=== PATIENT | female | born 1975 | race Caucasian/White ===

== ENCOUNTER 2018-02-21 15:08 | Emergency (ER) | payer OTHER ==
[~2018-02-21] VITALS: Ht 167.6 cm; Wt 106.1 kg
[~2018-02-21 15:08] MED LIST: GLUCOPHAGE500 MG PO; HUMALOG MI100 UNIT/6 SC
[2018-02-21 15:43] LABS: HEMATOCRIT 29.3 % (36.0-46.0); MCH 23.2 PG (29.0-34.0); MCHC 30.7 G/DL (30.0-36.0); MCV 75.5 FL (83-99); PLATELET COUNT 338 K/uL (156-360); RBC DIS.WIDTH-CV 15.8 % (11.8-14.6); RBC DIS.WIDTH-SD 43.5 % (39-53); RED BLOOD COUNT 3.88 M/uL (3.80-5.20)
[2018-02-21 15:56] LABS: ALBUMIN 3.1 g/dL (3.2-4.8); CHLORIDE 101 mEq/L (99-109); POTASSIUM 3.5 mEq/L (3.7-5.4); SODIUM 133 mEq/L (136-147)
[2018-02-21 15:59] LABS: CARBON DIOXIDE (BICARBONATE) 24.6 MEQ/L (20-31); GLUCOSE 302 mg/dL (70-99); TOTAL PROTEIN 6.4 g/dL (6.4-8.3)
[2018-02-21 16:01] LABS: TOTAL BILIRUBIN 0.3 mg/dL (0.0-1.0)
[2018-02-21 16:02] LABS: ALKALINE PHOSPHATASE 73 IU/L (3-129); GFR ESTIMATE (CALCULATED) > 59 mL/min/
[2018-02-21 16:03] LABS: UREA NITROGEN (BUN) 15 mg/dL (9-23)
[2018-02-21 16:04] LABS: AST (GOT) 12 IU/L (2-34)
[2018-02-21 16:05] LABS: ALT (GPT) 6 IU/L (3-49)
[2018-02-21 16:06] LABS: TROP-I INTERPRETATION NEGATIVE; TROPONIN-I 0.02 ng/mL (0.0-0.30)
[2018-02-21] MEDS ORDERED: PATANOL OP100 DROP/5 RIGHT EYE (17:07)
[2018-02-21] MEDS ORDERED: KEFLEX500 MG PO (17:07)
[2018-02-21] MEDS ORDERED: METFORMIN HCL500 MG PO (17:07)
[2018-02-21] MEDS ORDERED: FLEXERIL10 MG PO (17:14)
[2018-02-21] MEDS ORDERED: TESSALON200 MG PO (17:14)
[2018-02-21 17:32] VITALS: BP 176/91
== END 2018-02-21 18:09 | disposition home or self-care (01) ==
LOC: EME 15:08
PROVIDERS: Nurse Practitioner Family
DX: E11.65 Type 2 diabetes mellitus with hyperglycemia (principal); N39.0 Urinary tract infection, site not specified; D64.9 Anemia, unspecified; H10.11 Acute atopic conjunctivitis, right eye; Z91.14 Patient's other noncompliance with medication regimen; R94.31 Abnormal electrocardiogram [ECG] [EKG]; M41.9 Scoliosis, unspecified; H54.7 Unspecified visual loss; Z79.84 Long term (current) use of oral hypoglycemic drugs
CPT/HCPCS: 71046; 80053; 82010; 82803; 82948; 84484; 85027; 93005; 94640; 99281; 99285; J1885; J7030

== ENCOUNTER 2018-02-21 18:24 | Inpatient (IN) | payer OTHER ==
[~2018-02-21] VITALS: Ht 167.6 cm; Wt 96.3 kg
[~2018-02-21 18:24] MED LIST changes: +FLEXERIL10 MG PO; +KEFLEX500 MG PO; +METFORMIN HCL500 MG PO; +PATANOL OP100 DROP/5 RIGHT EYE; +TESSALON200 MG PO
[2018-02-22 00:25] VITALS: BP 140/92
[2018-02-22 07:39] VITALS: BP 136/66
[2018-02-22 14:52] VITALS: BP 143/82
[2018-02-23 07:30] VITALS: BP 141/80
[2018-02-23 15:06] VITALS: BP 161/75
[2018-02-23 17:05] LABS: HEMATOCRIT 27.1 % (36.0-46.0); HEMOGLOBIN 8.2 G/DL (11.9-15.5); MCHC 30.3 G/DL (30.0-36.0); MCV 76.1 FL (83-99); PLATELET COUNT 288 K/uL (156-360); RBC DIS.WIDTH-CV 16.2 % (11.8-14.6); RBC DIS.WIDTH-SD 44.6 % (39-53); RED BLOOD COUNT 3.56 M/uL (3.80-5.20); WHITE BLOOD COUNT 5.5 K/uL (4.1-10.2)
[2018-02-23 17:14] LABS: CHLORIDE 106 MEQ/L (99-109); POTASSIUM 3.5 MEQ/L (3.7-5.4); SODIUM 136 MEQ/L (136-147)
[2018-02-23 17:20] LABS: CREATININE 1.2 MG/DL (0.6-1.3); GFR ESTIMATE (CALCULATED) 52 mL/min/; GLUCOSE 198 mg/dL (70-99)
[2018-02-23 17:32] LABS: UREA NITROGEN (BUN) 26 mg/dL (9-23)
[2018-02-23 18:32] VITALS: BP 106/59
[2018-02-24 05:31] LABS: APPEARANCE SL.HAZY ((CLEAR)); BILIRUBIN NEGATIVE; BLOOD SMALL; COLOR YELLOW ((YELLOW)); GLUCOSE (STRIP) >=500; KETONES NEGATIVE; LEUKOCYTES NEGATIVE; NITRITE NEGATIVE; PROTEIN (STRIP) >=500; SPECIFIC GRAVITY 1.013 (1.000-1.030); UROBILINOGEN 0.2 MG/DL (0.2-1.0)
[2018-02-24 05:42] LABS: BACTERIA NONE SEEN /HPF; EPITHELIAL CELLS 1+ /HPF; HYALINE CASTS 0-5 /LPF; MUCUS TRACE /LPF; RED BLOOD CELLS 0-5 /HPF (0-5); WHITE BLOOD CELLS 0-5 /HPF (0-5)
[2018-02-24 07:37] LABS: HEMATOCRIT 26.6 % (36.0-46.0); HEMOGLOBIN 7.8 G/DL (11.9-15.5); MCH 22.3 PG (29.0-34.0); MCHC 29.3 G/DL (30.0-36.0); MCV 76.2 FL (83-99); PLATELET COUNT 300 K/uL (156-360); RBC DIS.WIDTH-CV 16.1 % (11.8-14.6); RBC DIS.WIDTH-SD 44.7 % (39-53); RED BLOOD COUNT 3.49 M/uL (3.80-5.20); WHITE BLOOD COUNT 5.9 K/uL (4.1-10.2)
[2018-02-24 07:48] VITALS: BP 169/78
[2018-02-24 08:32] LABS: FOLIC ACID (FOLATE) 9.7 NG/ML (5.0-22.0)
[2018-02-24 08:40] LABS: FERRITIN 9 NG/ML (10-291)
[2018-02-24 09:21] LABS: CHLORIDE 109 MEQ/L (99-109); GFR ESTIMATE (CALCULATED) > 59 mL/min/; GLUCOSE 126 mg/dL (70-99); SODIUM 140 MEQ/L (136-147); UREA NITROGEN (BUN) 26 mg/dL (9-23)
[2018-02-24 09:22] LABS: IRON < 10 MCG/DL (35-150); TRANSFERRIN SATUR. 5 % (20-55)
[2018-02-24 16:19] VITALS: BP 163/79
[2018-02-24 18:10] VITALS: BP 114/59
[2018-02-25 07:33] VITALS: BP 159/74
[2018-02-25 08:30] LABS: HEMATOCRIT 26.8 % (36.0-46.0); HEMOGLOBIN 8.1 G/DL (11.9-15.5); MCH 23.2 PG (29.0-34.0); MCHC 30.2 G/DL (30.0-36.0); MCV 76.8 FL (83-99); PLATELET COUNT 298 K/uL (156-360); RBC DIS.WIDTH-CV 16.1 % (11.8-14.6); RBC DIS.WIDTH-SD 45.1 % (39-53); RED BLOOD COUNT 3.49 M/uL (3.80-5.20); WHITE BLOOD COUNT 4.8 K/uL (4.1-10.2)
[2018-02-25 08:58] LABS: CHLORIDE 109 MEQ/L (99-109); CREATININE 0.9 MG/DL (0.6-1.3); GFR ESTIMATE (CALCULATED) > 59 mL/min/; GLUCOSE 116 mg/dL (70-99); POTASSIUM 3.9 MEQ/L (3.7-5.4); SODIUM 140 MEQ/L (136-147); UREA NITROGEN (BUN) 17 mg/dL (9-23)
[2018-02-25 16:08] VITALS: BP 166/90
[2018-02-25 20:47] LABS: C DIFF TOXIN NEGATIVE (NEGATIVE)
[2018-02-25 21:10] LABS: STOOL OCCULT BLD 1ST SPECIMEN NEGATIVE
[2018-02-26 07:40] VITALS: BP 178/87
[2018-02-26 09:05] LABS: HEMOGLOBIN A1c (GLYCOHEMOGLOB) 10.6 % (Below 5.7)
[2018-02-26 10:14] VITALS: BP 152/102
[2018-02-26 16:24] VITALS: BP 182/90
[2018-02-27 07:57] VITALS: BP 129/62
[2018-02-27 16:06] VITALS: BP 161/78
[2018-02-27 19:22] VITALS: BP 106/57
[2018-02-28 07:48] VITALS: BP 171/86
[2018-02-28 16:15] VITALS: BP 154/75
[2018-03-01 08:27] VITALS: BP 171/84
[2018-03-02 08:12] VITALS: BP 145/73
[2018-03-02 16:47] VITALS: BP 195/90
[2018-03-03 02:09] VITALS: BP 156/81
[2018-03-03 07:43] VITALS: BP 176/91
[2018-03-03 16:41] VITALS: BP 132/79
[2018-03-04 07:46] VITALS: BP 138/82
[2018-03-04 16:01] VITALS: BP 191/94
[2018-03-04 17:57] VITALS: BP 136/89
[2018-03-05 07:54] VITALS: BP 129/71
[2018-03-05 16:33] VITALS: BP 140/70
[2018-03-06 08:25] VITALS: BP 119/64
[2018-03-06 16:28] VITALS: BP 158/85
[2018-03-07 07:44] VITALS: BP 119/63
[2018-03-07 16:23] VITALS: BP 155/78
[2018-03-08 07:42] VITALS: BP 120/59
[2018-03-08 15:08] VITALS: BP 143/71
[2018-03-09 07:54] VITALS: BP 120/64
[2018-03-09 15:20] VITALS: BP 134/77
[2018-03-10 08:04] VITALS: BP 128/60
[2018-03-10 15:56] VITALS: BP 147/70
[2018-03-11 08:02] VITALS: BP 89/55
[2018-03-11 16:16] VITALS: BP 153/91
[2018-03-12 07:46] VITALS: BP 144/59
[2018-03-12 15:34] VITALS: BP 114/56
[2018-03-13 07:27] VITALS: BP 112/65
[2018-03-13 14:44] VITALS: BP 170/86
[2018-03-14 08:09] VITALS: BP 112/59
[2018-03-14] MEDS ORDERED: NYSTATIN15 GM TP (08:42)
[2018-03-14] MEDS ORDERED: LISINOPRIL2.5 MG PO (08:42)
[2018-03-14] MEDS ORDERED: ESCITALOPRAM OX20 MG PO (08:42)
== END 2018-03-14 12:10 | disposition home or self-care (01) | DRG 881 ==
LOC: EME 18:24 → EDOF 21:45 → 1WEST 21:45 → ENRESERV 23:00 → 1WEST 23:23
PROVIDERS: Hospitalist; Internal Medicine; Psychiatry & Neurology Psychiatry
DX: F43.21 Adjustment disorder with depressed mood (principal); R45.851 Suicidal ideations; R11.2 Nausea with vomiting, unspecified; R19.7 Diarrhea, unspecified; T38.3X5A Adverse effect of insulin and oral hypoglycemic [antidiabetic] drugs, initial encounter; T36.1X5A Adverse effect of cephalosporins and other beta-lactam antibiotics, initial encounter; E87.6 Hypokalemia; E11.65 Type 2 diabetes mellitus with hyperglycemia; I12.9 Hypertensive chronic kidney disease with stage 1 through stage 4 chronic kidney disease, or unspecified chronic kidney disease; E11.22 Type 2 diabetes mellitus with diabetic chronic kidney disease; N18.9 Chronic kidney disease, unspecified; E66.9 Obesity, unspecified; M41.9 Scoliosis, unspecified; H54.61 Unqualified visual loss, right eye, normal vision left eye; F41.9 Anxiety disorder, unspecified; D50.9 Iron deficiency anemia, unspecified; G47.00 Insomnia, unspecified; H10.11 Acute atopic conjunctivitis, right eye; Z91.14 Patient's other noncompliance with medication regimen; Z59.0 Homelessness; Z68.35 Body mass index [BMI] 35.0-35.9, adult
CPT/HCPCS: 80048; 81003; 82272; 82607; 82728; 82746; 82948; 83036; 83540; 84466; 85027; 87177; 87493; 90839; 97150 GO; 97166 GO; 99281; 99284; J1815

== ENCOUNTER 2018-03-16 14:04 | Inpatient (IN) | payer OTHER ==
[~2018-03-16] VITALS: Ht 167.6 cm; Wt 103.1 kg
[~2018-03-16 14:04] MED LIST changes: +ESCITALOPRAM OX20 MG PO; +LISINOPRIL2.5 MG PO; +NYSTATIN15 GM TP
[2018-03-16 16:01] LABS: BASOPHIL (%) 0.8 % (0-1); BASOPHIL COUNT 0.1 K/uL (0-0.1); EOSINOPHIL COUNT 0.2 K/uL (0-0.3); HEMATOCRIT 34.4 % (36.0-46.0); HEMOGLOBIN 10.8 G/DL (11.9-15.5); IMMATURE GRANULOCYTE (%) 0.8 % (0.0-0.7); LYMPHOCYTE (%) 19.6 % (15-42); LYMPHOCYTE COUNT 1.6 K/uL (1.0-2.8); MCH 25.1 PG (29.0-34.0); MCHC 31.4 G/DL (30.0-36.0); MONOCYTE COUNT 0.6 K/uL (0-0.8); NEUTROPHIL (%) 68.8 % (45-76); NEUTROPHIL COUNT 5.5 K/uL (1.8-6.4); PLATELET COUNT 279 K/uL (156-360); RBC DIS.WIDTH-CV 21.2 % (11.8-14.6); RBC DIS.WIDTH-SD 60.3 % (39-53)
[2018-03-16 16:07] LABS: ALBUMIN 3.7 g/dL (3.2-4.8)
[2018-03-16 16:08] LABS: CHLORIDE 101 mEq/L (99-109); POTASSIUM 5.2 mEq/L (3.7-5.4); SODIUM 134 mEq/L (136-147)
[2018-03-16 16:10] LABS: GLUCOSE 284 mg/dL (70-99); TOTAL PROTEIN 7.1 g/dL (6.4-8.3)
[2018-03-16 16:12] LABS: TOTAL BILIRUBIN 0.4 mg/dL (0.0-1.0)
[2018-03-16 16:13] LABS: ALKALINE PHOSPHATASE 62 IU/L (3-129)
[2018-03-16 16:14] LABS: CREATININE 3.8 mg/dL (0.6-1.3); GFR ESTIMATE (CALCULATED) 14 mL/min/
[2018-03-16 16:15] LABS: AST (GOT) 11 IU/L (2-34); UREA NITROGEN (BUN) 64 mg/dL (9-23)
[2018-03-16 16:17] LABS: ALT (GPT) 12 IU/L (3-49)
[2018-03-16 16:51] LABS: CREATINE KINASE 113 IU/L (1-294)
[2018-03-16 18:13] VITALS: BP 144/84
[2018-03-16 18:22] LABS: IRON 21 MCG/DL (35-150); PHOSPHORUS 7.3 mg/dL (2.5-4.9)
[2018-03-16 20:09] VITALS: BP 133/68
[2018-03-17] VITALS (9 sets, daily range): BP systolic 85–191; BP diastolic 54–86
[2018-03-17 01:08] LABS: APPEARANCE SL.HAZY ((CLEAR)); BILIRUBIN NEGATIVE; BLOOD SMALL; COLOR YELLOW ((YELLOW)); GLUCOSE (STRIP) 150; KETONES NEGATIVE; LEUKOCYTES NEGATIVE; NITRITE NEGATIVE; PROTEIN (STRIP) 100; SPECIFIC GRAVITY 1.011 (1.000-1.030); UROBILINOGEN 0.2 MG/DL (0.2-1.0)
[2018-03-17 01:17] LABS: BACTERIA RARE /HPF; EPITHELIAL CELLS 2+ /HPF; MUCUS NONE SEEN /LPF; RED BLOOD CELLS 0-5 /HPF (0-5); UCUL ADDED? YES
[2018-03-17 01:43] LABS: EOSINOPHILS,URINE SMALL AMOUNT
[2018-03-17 06:09] LABS: HEMATOCRIT 33.1 % (36.0-46.0); HEMOGLOBIN 10.3 G/DL (11.9-15.5); MCH 25.3 PG (29.0-34.0); MCHC 31.1 G/DL (30.0-36.0); MCV 81.3 FL (83-99); PLATELET COUNT 267 K/uL (156-360); RBC DIS.WIDTH-CV 20.9 % (11.8-14.6); RBC DIS.WIDTH-SD 60.8 % (39-53); RED BLOOD COUNT 4.07 M/uL (3.80-5.20); WHITE BLOOD COUNT 5.6 K/uL (4.1-10.2)
[2018-03-17 06:39] LABS: CHLORIDE 107 MEQ/L (99-109); GFR ESTIMATE (CALCULATED) 26 mL/min/; POTASSIUM 4.9 MEQ/L (3.7-5.4); SODIUM 137 MEQ/L (136-147); UREA NITROGEN (BUN) 52 mg/dL (9-23)
[2018-03-17 06:41] LABS: CREATININE 2.2 MG/DL (0.6-1.3); GLUCOSE 116 mg/dL (70-99)
[2018-03-17 12:06] LABS: HEMOGLOBIN A1c (GLYCOHEMOGLOB) 8.9 % (Below 5.7)
[2018-03-18 03:10] VITALS: BP 178/95
[2018-03-18 06:19] LABS: BASOPHIL COUNT 0.1 K/uL (0-0.1); EOSINOPHIL (%) 2.3 % (0-5); EOSINOPHIL COUNT 0.1 K/uL (0-0.3); HEMATOCRIT 34.8 % (36.0-46.0); HEMOGLOBIN 10.6 G/DL (11.9-15.5); IMMATURE GRANULOCYTE (%) 0.4 % (0.0-0.7); LYMPHOCYTE (%) 24.8 % (15-42); LYMPHOCYTE COUNT 1.2 K/uL (1.0-2.8); MCH 24.9 PG (29.0-34.0); MCHC 30.5 G/DL (30.0-36.0); MCV 81.7 FL (83-99); MONOCYTE (%) 7.9 % (3-12); MONOCYTE COUNT 0.4 K/uL (0-0.8); NEUTROPHIL (%) 63.6 % (45-76); NEUTROPHIL COUNT 3.1 K/uL (1.8-6.4); PLATELET COUNT 253 K/uL (156-360); RBC DIS.WIDTH-CV 20.9 % (11.8-14.6); RBC DIS.WIDTH-SD 61.2 % (39-53); RED BLOOD COUNT 4.26 M/uL (3.80-5.20); WHITE BLOOD COUNT 4.8 K/uL (4.1-10.2)
[2018-03-18 06:53] LABS: ALBUMIN 3.4 G/DL (3.2-4.8); ALKALINE PHOSPHATASE 52 IU/L (3-129); ALT (GPT) 13 IU/L (3-49); AST (GOT) 16 IU/L (2-34); CHLORIDE 110 MEQ/L (99-109); CREATINE KINASE 85 IU/L (1-294); GLUCOSE 145 mg/dL (70-99); MAGNESIUM 1.8 mg/dl (1.3-2.7); SODIUM 138 MEQ/L (136-147); TOTAL BILIRUBIN 0.3 MG/DL (0.0-1.0); TOTAL PROTEIN 6.2 G/DL (6.4-8.3); UREA NITROGEN (BUN) 36 mg/dL (9-23)
[2018-03-18 06:54] LABS: CREATININE 1.3 MG/DL (0.6-1.3); GFR ESTIMATE (CALCULATED) 48 mL/min/; PHOSPHORUS 3.1 mg/dL (2.5-4.9)
[2018-03-18 08:01] VITALS: BP 169/81
[2018-03-18 12:00] VITALS: BP 184/89
[2018-03-18 15:40] VITALS: BP 139/83
[2018-03-18 19:40] VITALS: BP 140/81
[2018-03-18 23:54] VITALS: BP 174/88
[2018-03-19 04:18] VITALS: BP 164/88
[2018-03-19 07:03] VITALS: BP 150/72
[2018-03-19 09:09] LABS: HEMATOCRIT 37.9 % (36.0-46.0); HEMOGLOBIN 11.4 G/DL (11.9-15.5); MCH 25.1 PG (29.0-34.0); MCHC 30.1 G/DL (30.0-36.0); MCV 83.5 FL (83-99); PLATELET COUNT 313 K/uL (156-360); RBC DIS.WIDTH-CV 21.2 % (11.8-14.6); RED BLOOD COUNT 4.54 M/uL (3.80-5.20); WHITE BLOOD COUNT 6.7 K/uL (4.1-10.2)
[2018-03-19 09:31] LABS: CHLORIDE 107 MEQ/L (99-109); CREATININE 1.2 MG/DL (0.6-1.3); GFR ESTIMATE (CALCULATED) 52 mL/min/; GLUCOSE 175 mg/dL (70-99); POTASSIUM 4.3 MEQ/L (3.7-5.4); SODIUM 140 MEQ/L (136-147); UREA NITROGEN (BUN) 21 mg/dL (9-23)
[2018-03-19 15:21] VITALS: BP 136/90
[2018-03-19 23:24] VITALS: BP 157/78
[2018-03-20 07:45] VITALS: BP 177/83
[2018-03-20 15:56] VITALS: BP 158/81
[2018-03-20] MEDS ORDERED: POLYETHYLENE GL17 GM PO (15:58)
[2018-03-20] MEDS ORDERED: FERROUS SULFAT325 MG PO (15:58)
[2018-03-20] MEDS ORDERED: DOCUSATE SODIU100 MG PO (15:58)
[2018-03-20] MEDS ORDERED: AMLODIPINE BESY10 MG PO (15:59)
[2018-03-21 00:07] VITALS: BP 173/92
[2018-03-21 01:08] VITALS: BP 190/90
[2018-03-21 04:09] VITALS: BP 153/74
[2018-03-21 07:39] VITALS: BP 170/96
[2018-03-21 15:15] VITALS: BP 166/81
== END 2018-03-21 16:09 | DRG 684 ==
LOC: EME 14:04 → EDOF 16:59 → 5SOUTH 16:59 → ENRESERV 17:03 → 5SOUTH 18:05
PROVIDERS: Emergency Medicine; Internal Medicine; Internal Medicine Nephrology; Physician Assistant Medical
DX: N17.9 Acute kidney failure, unspecified (principal); E11.65 Type 2 diabetes mellitus with hyperglycemia; D64.9 Anemia, unspecified; F43.21 Adjustment disorder with depressed mood; N18.3 Chronic kidney disease, stage 3 (moderate); M41.9 Scoliosis, unspecified; Z59.0 Homelessness; E11.22 Type 2 diabetes mellitus with diabetic chronic kidney disease; E86.0 Dehydration; I12.9 Hypertensive chronic kidney disease with stage 1 through stage 4 chronic kidney disease, or unspecified chronic kidney disease; Z79.4 Long term (current) use of insulin; R33.9 Retention of urine, unspecified; R62.7 Adult failure to thrive; F45.9 Somatoform disorder, unspecified; H10.10 Acute atopic conjunctivitis, unspecified eye; H54.7 Unspecified visual loss
CPT/HCPCS: 71046; 76770; 80048; 80053; 81003; 82550; 82570; 82948; 83036; 83540; 83735; 84100; 84156; 84300; 85025; 85027; 87086; 89190; 93971; 97530 GP; 99281; 99285; J1644; J1815; J2405; J7030